=== PATIENT | male | born 1990 | race Caucasian/White ===

== ENCOUNTER 2017-08-17 21:50 | Emergency (ER) | payer SELFPAY ==
[2017-08-17 22:06] VITALS: BP 149/86; PULSE 88; TEMP 98.9; BMI 25.8
--- NOTE | 2017-08-17 23:57 | PDOC ---
History of Present Illness - General History Source: Patient Exam Limitations: No Limitations - History of Present Illness Initial Comments: 08/18/17 00:39 Patient is a 27 year old male with a significant past medical history of substance abuse who presents to the ED with complaints of lightheadedness that began earlier today. Patient reports smoking tre dust for tweeks straight followed by experiencing gradual lightheadedness that shows no signs of subsiding, prompting his family to bring him into the ED for further evaluation. He currently has no complaints while in the ED and states he would like to go home. Denies chest pain, Sob. Denies nausea, vomiting. Denies fevers, chills. Denies contact with sick individuals, out of state travelling. Denies any other symptoms. Allergies: None Social History: Current smoker. Current alcohol use. Current illicit drug use. Surgical History: None PMD: None <Kip Hillman - Last Filed: 08/18/17 00:57> - General History Source: Patient <Eleno Cross - Last Filed: 08/18/17 01:14> - General Chief Complaint: Substance Abuse Stated Complaint: SUBSTANCE ABUSE Time Seen by Provider: 08/17/17 23:53 Past History <Kip Hillman - Last Filed: 08/18/17 00:57> - Past Medical History COPD: No - Suicide/Smoking/Psychosocial Hx Smoking History: Never smoked Number of Cigarettes Smoked Daily: 10 Information on smoking cessation initiated: No Hx Alcohol Use: Yes Drug/Substance Use Hx: Yes Substance Use Type: Alcohol <Eleno Cross - Last Filed: 08/18/17 01:14> - Past Medical History Allergies/Adverse Reactions: Allergies Allergy/AdvReac Type Severity Reaction Status Date / Time No Known Allergies Allergy Verified 08/17/17 22:04 Home Medications: Ambulatory Orders NK [No Known Home Medication] 04/07/16 Review of Systems - Review of Systems Able to Perform ROS?: Yes Comments:: 08/18/17 00:39 CONSTITUTIONAL: +Lightheadedness. Absent: fever, no chills, no fatigue EYES: Absent: visual changes ENT: Absent: ear pain, no sore throat CARDIOVASCULAR: Absent: chest pain, no palpitations RESPIRATORY: Absent: cough, no SOB GI: Absent: abdominal pain, no nausea, no vomiting, no constipation, no diarrhea GENITOURINARY: Absent: dysuria, no frequency, no hematuria MUSCULOSKELETAL: Absent: back pain, no arthralgia, no myalgia SKIN: Absent: rash <Kip Hillman - Last Filed: 08/18/17 00:57> *Physical Exam - Vital Signs Last Vital Signs Temp Pulse Resp BP Pulse Ox 98.9 F 88 18 149/86 96 08/17/17 22:04 08/17/17 22:04 08/17/17 22:04 08/17/17 22:04 08/17/17 22:04 - Physical Exam Comments: 08/18/17 00:39 GENERAL: Well-appearing, well-nourished. No apparent distress. HEENT: Normocephalic, atraumatic. PERRL, EOM intact. CARDIOVASCULAR: Normal S1, S2. Regular rate and rhythm. PULMONARY: Clear to auscultation bilaterally. ABDOMEN: Soft, non-distended, non-tender. EXTREMITIES: Normal ROM in all four extremities. No gross deformities. SKIN: Warm, dry. No rash NEUROLOGICAL: No focal neurological deficits. <Kip Hillman - Last Filed: 08/18/17 00:57> - Vital Signs Last Vital Signs Temp Pulse Resp BP Pulse Ox 98.9 F 88 18 149/86 96 08/17/17 22:04 08/17/17 22:04 08/17/17 22:04 08/17/17 22:04 08/17/17 22:04 <Eleno Cross - Last Filed: 08/18/17 01:14> Heart Score/ECG Review - ECG Intrepretation Comment:: 08/18/17 00:57 Normal Sinus rhythm with sinus arrhythmia Normal ECG Vent. rate 71 bpm [place] interval 152 ms QRS duration 86 ms <Kip Hillman - Last Filed: 08/18/17 00:57> ED Treatment Course - LABORATORY CBC & Chemistry Diagram: 08/18/17 00:00 08/18/17 00:00 - ADDITIONAL ORDERS Additional order review: 08/18/17 00:00 RBC 5.34 MCV 89.4 MCHC 33.9 RDW 14.4 MPV 8.9 Neutrophils % 55.5 Lymphocytes % 35.3 Monocytes % 7.3 Eosinophils % 1.6 Basophils % 0.3 <Kip Hillman - Last Filed: 08/18/17 00:57> - LABORATORY CBC & Chemistry Diagram: 08/18/17 00:00 08/18/17 00:00 <Eleno Cross - Last Filed: 08/18/17 01:14> Medical Decision Making - Medical Decision Making 08/18/17 01:11 Dr. Cross: The scribe's documentation has been prepared under my direction and personally reviewed by me in its entirery. I confirm that the note above accurately reflects all work, treatment, procedures, and medical decision making performed by me. labs and EKG are stable. Patient will be discharged to follow with his primary care doctor <Eleno Cross - Last Filed: 08/18/17 01:14> *DC/Admit/Observation/Transfer - Attestations Scribe Attestion: 08/18/17 00:39 Documentation prepared by Kip Hillman, acting as bilingual medical assistant for Eleno Cross MD/DO. <Kip Hillman - Last Filed: 08/18/17 00:57> - Discharge Dispostion Admit: No <Eleno Cross - Last Filed: 08/18/17 01:14> Diagnosis at time of Disposition: Substance abuse - Discharge Dispostion Disposition: HOME Condition at time of disposition: Stable - Referrals Referrals: Jose Miguel Vincent MD [Staff Physician] - Vic Beaulieu MD [House Staff] - - Patient Instructions Printed Discharge Instructions: Getting Treatment for Drug Addiction
[2017-08-18 00:25] LABS: BASO % 0.3 % (0-2.0); EOS % 1.6 % (0-4.5); HEMATOCRIT 47.8 % (35.4-49); HEMOGLOBIN 16.2 GM/dL (11.7-16.9); LYMPH % 35.3 % (8-40); MCH 30.3 pg (25.7-33.7); MCHC 33.9 g/dl (32.0-35.9); MEAN CELL VOLUME 89.4 fl (80-96); MEAN PLT VOLUME 8.9 fl (7.5-11.1); MONO % 7.3 % (3.8-10.2); NEUT % 55.5 % (42.8-82.8); PLATELET COUNT 267 K/MM3 (134-434); RBC 5.34 M/mm3 (4.00-5.60); RDW 14.4 % (11.9-15.9); WHITE BLOOD COUNT 9.6 K/mm3 (4.0-10.0)
[2017-08-18 00:48] LABS: ALBUMIN 4.3 g/dl (3.4-5.0); ANION GAP 8 (8-16); BILIRUBIN,TOTAL 0.4 mg/dL (0.2-1.0); BLOOD UREA NITROGEN 9 mg/dL (7-18); CALCIUM 8.9 mg/dL (8.5-10.1); CHLORIDE 102 mmol/L (98-107); CO2 32 mmol/L (21-32); GLUCOSE,RANDOM 91 mg/dL (74-106); MAGNESIUM 2.5 mg/dL (1.8-2.4); POTASSIUM 4.7 mmol/L (3.5-5.1); SGOT/AST 15 U/L (15-37); SGPT/ALT 19 U/L (12-78); SODIUM 142 mmol/L (136-145)
[2017-08-18 00:51] LABS: ALK PHOS 82 U/L (45-117); N-TERMINAL BNP 10.83 pg/ml (5-125)
--- NOTE | 2017-08-21 11:42 | EKG ---
Test Reason : Blood Pressure : / mmHG Vent. Rate : 071 BPM Atrial Rate : 071 BPM P-R Int : 152 ms QRS Dur : 086 ms QT Int : 378 ms P-R-T Axes : 058 052 040 degrees QTc Int : 410 ms NORMAL SINUS RHYTHM WITH SINUS ARRHYTHMIA NORMAL ECG NO PREVIOUS ECGS AVAILABLE Confirmed by KAYLYN STOUT MD ([id number]) on 08/21/2017 11:42:27 AM Referred By: Confirmed By:KAYLYN STOUT MD
== END 2017-08-18 01:15 | disposition home or self-care (01) ==
LOC: JER 21:50
DX: F10.10 Alcohol abuse, uncomplicated (principal); F17.210 Nicotine dependence, cigarettes, uncomplicated
CPT/HCPCS: 36415; 80053; 82550; 83690; 83735; 83880; 84484; 85025; 93005; 93010; 99283-25

== ENCOUNTER 2017-08-18 09:19 | Inpatient (IN) | payer OTHER ==
[2017-08-18 09:56] VITALS: BMI 28.4
--- NOTE | 2017-08-18 12:47 | HP ---
CIWA Score - CIWA Score Nausea/Vomitin-No Nausea/No Vomiting Muscle Tremors: 1-None Visible, but Barto Anxiety: 5 Agitation: 3 Paroxysmal Sweats: No Perspiration Orientation: 3-Disoriented Date>2 days Tacttile Disturbances: 0-None Auditory Disturbances: 0-None Visual Disturbances: 0-None Headache: 0-None Present CIWA-Ar Total Score: 12 Admission ROS BHS - HPI Chief Complaint: ALCOHOL WITHDRAWAL SX Allergies/Adverse Reactions: Allergies Allergy/AdvReac Type Severity Reaction Status Date / Time No Known Allergies Allergy Verified 08/18/17 09:28 History of Present Illness: 27 Y/O H/MALE WITH A HX ALCOHOL DEPENDENCE SEEKING TREATMENT. PT WAS AT [facility] ER " BECAUSE I WAS BUGGING OUT,LOOSING MY MIND". "FAMILY MEMBERS TOOK ME TO THE ER". PT REPORTS PREVIOUS OUTPATIENT DRUG TREATMENT AT [facility] IN 2013. PT IS VERY RESTLESS, AND PACING AROUND THE ROOM ON ASSESSMENT. Exam Limitations: No Limitations - Ebola screening Have you traveled outside of the country in the last 21 days: No Have you had contact with anyone from an Ebola affected area: No Have you been sick,other than usual withdrawal symptoms: No Do you have a fever: No - Review of Systems Constitutional: Changes in sleep EENT: reports: Blurred Vision, Dental Problems (IN POOR REPAIR), Other (DRY EYES ) Respiratory: reports: No Symptoms reported Cardiac: reports: Lightheadedness GI: reports: No Symptoms Reported : reports: No Symptoms Reported Musculoskeletal: reports: Back Pain (RECENT RIGHT SIDE OF BACK STABBING PAIN "STRAIGHT UP".), Joint Pain (RIGHT INDEX FINGER PAIN SINCE YESTERDAY.) Integumentary: reports: No Symptoms Reported Neuro: reports: Headache, Numbness, Tingling, Unsteady Gait, Dizziness Endocrine: reports: No Symptoms Reported Hematology: reports: No Symptoms Reported Psychiatric: reports: Orientated x3 Other Systems: Reviewed and Negative Patient History - Patient Medical History Hx Anemia: No Hx Asthma: No Hx Chronic Obstructive Pulmonary Disease (COPD): No Hx Cardiac Disorders: No Hx Hypertension: No (BP 152/76) Hx Hypercholesterolemia: No HX Cerebrovascular Accident: No Hx Seizures: No Hx Diabetes: No Hx Gastrointestinal Disorders: No Hx Genitourinary Disorders: No Hx Sexually Transmitted Disorders: Yes (STD IN 2017 AND GOT A ONE TIME SHOT.) Hx Renal Disease (ESRD): No Hx Thyroid Disease: No Hx Human Immunodeficiency Virus (HIV): No (NEGATIVE HX) Hx Hepatitis C: No (NEGATIVE HX) Hx Depression: No Hx Suicide Attempt: No (DENIES S/H/I/TODAY) Hx Bipolar Disorder: No Hx Schizophrenia: No - Patient Surgical History Past Surgical History: No Hx Neurologic Surgery: No Hx Cataract Extraction: No Hx Cardiac Surgery: No Hx Lung Surgery: No Hx Breast Surgery: No Hx Breast Biopsy: No Hx Abdominal Surgery: No Hx Appendectomy: No Hx Cholecystectomy: No Hx Genitourinary Surgery: No Hx Section: No Hx Orthopedic Surgery: No Anesthesia Reaction: No - PPD History Previous Implant?: Yes Documented Results: Negative w/o proof Implanted On Prior [facility] Admission?: No - Reproductive History Patient is a Female of Child Bearing Age (11 -55 yrs old): No (MALE) - Smoking Cessation Smoking history: Current every day smoker Aproximately how many cigarettes per day: 10 Hx Chewing Tobacco Use: No Initiated information on smoking cessation: Yes 'Breaking Loose' booklet given: 08/18/17 - Substance & Tx. History Hx Alcohol Use: Yes (TEQUILA) Hx Substance Use: Yes (PCP) Substance Use Type: Alcohol ( AND PCP) Hx Substance Use Treatment: Yes (LAST TX AT [facility]) - Substances Abused PCP Route: Smoking Frequency: Daily Amount used: $30 Age of first use: 17 Date of Last Use: 08/17/17 Alcohol-tequila Route: Oral Frequency: 3-6 times per week Amount used: 3 pts. Age of first use: 14 Date of Last Use: 08/17/17 Family Disease History - Family Disease History Family Disease History: Diabetes: Mother (ALIVE) Admission Physical Exam BHS - Vital Signs Vital Signs: Vital Signs - 24 hr 08/18/17 09:47 Temperature 96.3 F L Pulse Rate 65 Respiratory 20 Rate Blood Pressure 152/76 - Physical General Appearance: Yes: Moderate Distress, Irritable, Anxious, Other (VERY RESTLESS AND PACING IN ROOM.) HEENTM: Yes: EOMI, Normocephalic, WU, Pharynx Normal Respiratory: Yes: Chest Non-Tender, Lungs Clear, Normal Breath Sounds, No Respiratory Distress Neck: Yes: Supple, Trachea in good position Breast: Yes: Breast Exam Deferred Cardiology: Yes: Regular Rhythm, Regular Rate, S1, S2 Abdominal: Yes: Normal Bowel Sounds, Non Tender, Flat, Soft Genitourinary: Yes: Other (N/C) Back: Yes: Within Normal Limits Musculoskeletal: Yes: full range of Motion, Gait Steady Extremities: Yes: Normal Range of Motion, Non-Tender Neurological: Yes: hide dyer II-XII NML intact, Fully Oriented, Alert, Motor Strength 5/5 Integumentary: Yes: Dry, Warm, Other (SMALL RECENT SUPERFICIAL BRUISE ON RIGHT KNEE.) Lymphatic: Yes: Within Normal Limits - Diagnostic (1) Alcohol dependence with uncomplicated withdrawal Current Visit: Yes Status: Acute (2) Atypical mole Current Visit: Yes Status: Acute Comment: QUARTER INCH BROWN MOLE ON LEFT LATERAL SIDE OF BACK. Cleared for Admission [facility] - Detox or Rehab [facility] Level of Care: Medically Managed Detox Regimen/Protocol: Librium [facility] Breath Alcohol Content Breath Alcohol Content: 0 Urine Drug Screen - Results Drug Screen Negative: No Urine Drug Screen Results: THC-Marijuana, PCP-Phencyclidine
[2017-08-18] MEDS ORDERED: MAG HYDROX/AL HYDROX/SIMETH 30 ML UNIT-DOSE CUP PO PRN (13:11)
[2017-08-18] MEDS ORDERED: MAGNESIUM HYDROX 2400MG/30ML ORAL SUSPENSION 30 ML CUP PO PRN (13:11)
[2017-08-18] MEDS ORDERED: ACETAMINOPHEN 325 MG TABLET (FP) PO PRN (13:11)
[2017-08-18] MEDS ORDERED: LOPERAMIDE HCL 2 MG CAPSULE PO PRN (13:11)
[2017-08-18] MEDS ORDERED: P-EPHED 60MG/TRIPROLIDI 2.5MG TABLET PO PRN (13:11)
[2017-08-18] MEDS ORDERED: guaiFENesin/D-METHORPHAN HB 10 ML UNIT-DOSE CUPS PO PRN (13:11)
[2017-08-18] MEDS ORDERED: chlordiazePOXIDE HCL 25 MG CAPSULE PO PRN (13:11)
[2017-08-18] MEDS ORDERED: IBUPROFEN 400 MG TABLET (FP) PO PRN (13:11)
[2017-08-18] MEDS ORDERED: MENTHOL/PHENOL 1 EACH UD MM PRN (13:11)
[2017-08-18] MEDS ORDERED: MAGNESIUM CITRATE 300 ML BOTTLE PO PRN (13:11)
[2017-08-18] MEDS ORDERED: NICOTINE POLACRILEX 2 MG GUM BUC PRN (13:16)
[2017-08-18] MEDS ORDERED: hydrOXYzine PAMOATE 50 MG CAPSULE (FP) PO PRN (13:17)
[2017-08-18] MEDS ORDERED: NICOTINE 14 MG/24 HOURS TOPICAL PATCH TD SCH (13:55)
--- NOTE | 2017-08-18 16:51 | CONSULT ---
[facility] Psychiatric Consult - Data Date of interview: 08/18/17 Admission source: [facility] Identifying data: First admission to [facility] for this 27 y/o [place]-born male ,brought by his relatives for detox treatment for phencyclidine and marihuana dependence.Patient is single,a father of one,domiciled,unemployed and currently supported by family members. Substance Abuse History: Discussed in this session.Mr Branham admits to heavy use of PCP and marihuana.See details in the following section,extracted from the current [facility] report : Smoking history: Current every day smoker. Aproximately how many cigarettes per day: 10. Hx Chewing Tobacco Use: No. Initiated information on smoking cessation: Yes. 'Breaking Loose' booklet given : 08/18/17. - Substance & Tx. History. Hx Alcohol Use: Yes (TEQUILA). Hx Substance Use: Yes (PCP). Substance Use Type: Alcohol ( AND PCP). Hx Substance Use Treatment: Yes (LAST TX AT [facility]). - Substances Abused. PCP. Route: Smoking. Frequency: Daily. Amount used: $30. Age of first use: 17. Date of Last Use: 08/17/17. Alcohol-tequila. Route: Oral. Frequency: 3-6 times per week. Amount used: 3 pts. Age of first use: 14. Date of Last Use: 08/17/17 Medical History: Patient endorses good general health. Psychiatric History: Patient denies history of psychiatric hospitalizations.Mr Branham used to attend [facility] program at [facility] (court-mandated in 2013).He denies history of suicide attempts. Physical/Sexual Abuse/Trauma History: Patient denies. Additional Comment: Urine Drug Screen Results: THC-Marijuana, PCP- Phencyclidine.Noted. Mental Status Exam - Mental Status Exam Alert and Oriented to: Time, Place, Person Cognitive Function: Good Patient Appearance: Well Groomed (short,muscular built,covered with tattoos on forearms) Mood: Angry, Nervous, Irritable (upset at his relatives for bringing him to this facility) Affect: Mood Congruent Patient Behavior: Guarded (unpredictable,in total denial of the seriousness of suicidal threats made at [facility] earlier), Impulsive Speech Pattern: Clear Voice Loudness: Normal Thought Process: Goal Oriented Thought Disorder: Bizarre Hallucinations: Denies Suicidal Ideation: Denies (now ), Past (earlier during his assessment at [facility], this patient has been heard saying that he has plans to wrap a rope around his neck and hang) Homicidal Ideation: Denies Insight/Judgement: Poor Sleep: Fair Appetite: Good Muscle strength/Tone: Normal Gait/Station: Normal Psychiatric Findings - Problem List ([place] 1, 2,3) (1) Alcohol dependence with uncomplicated withdrawal Status: Acute (2) Phencyclidine (PCP) use disorder, severe, dependence Status: Acute (3) Marihuana dependence Status: Acute (4) Substance induced mood disorder Status: Acute (5) Impulse control disorder, unspecified Status: Acute - Initial Treatment Plan Initial Treatment Plan: Psychoeducation attempted : patient is NOT receptive.Mr Branham remains unpredictable.Refused treatment.Wants to leave immediately ( against medical advice).I have established contact,via telephone with his relatives.Spoke to his mother Haja Lau,his sister Kandy ) and his nephew Florencio Branham (tongan-speaking) at the request of the patient.They confirmed patient's statement made at [facility].Decision is made to place this patient on 1:1 Constant Observation as a precaution against elopement /impulsive behaviors.Case discussed with nursing staff.If escalation,EMS/911 will be activated and the patient will be transferred to the psychiatric emergency room at [facility] for further evaluation and disposition.Discussed with the nurse's school crossing guard supervisor on duty.
[2017-08-18] MEDS ORDERED: chlordiazePOXIDE HCL 25 MG CAPSULE PO SCH (17:00)
[2017-08-18 18:33] VITALS: BP 129/72; PULSE 73; TEMP 97.9
--- NOTE | 2017-08-18 19:33 | PN ---
[facility] Progress Note Note: Patient currently on 1:1 watch. Patient reported past (earlier during his assessment at [facility],this patient has been heard saying that he has plans to wrap a rope around his neck and hang). While in the unit patient was very anxious, pacing and agitated. Patient repeated several times that he wanted to leave, patient walked off the unit and was followed by the staff and security. Ambulance was called and patient was sent to [place] for further evaluation.
[2017-08-18] MEDS ORDERED: MELATONIN 5 MG TABLETS PO PRN (22:00)
[2017-08-18] MEDS ORDERED: THIAMINE HCL 100 MG TABLET (FP) PO SCH (22:00)
[2017-08-19] MEDS ORDERED: PRENATAL VITAMINS W/ FOLIC ACID TABLET (FP) PO SCH (10:00)
[2017-08-19] MEDS ORDERED: chlordiazePOXIDE HCL 25 MG CAPSULE PO SCH (17:00)
--- NOTE | 2017-08-19 18:33 | EKG ---
Test Reason : Blood Pressure : / mmHG Vent. Rate : 065 BPM Atrial Rate : 065 BPM P-R Int : 150 ms QRS Dur : 086 ms QT Int : 386 ms P-R-T Axes : 042 054 036 degrees QTc Int : 401 ms NORMAL SINUS RHYTHM NORMAL ECG WHEN COMPARED WITH ECG OF 18-AUG-2017 00:33, NO SIGNIFICANT CHANGE WAS FOUND Confirmed by MD ARAIZA MOYSES ([id number]) on 08/19/2017 6:32:56 PM Referred By: Confirmed By:JOREG ARAIZA MD
[2017-08-20] MEDS ORDERED: chlordiazePOXIDE 5 MG CAPSULE PO SCH (17:00)
[2017-08-21] MEDS ORDERED: chlordiazePOXIDE HCL 10 MG CAPSULE PO SCH (17:00)
== END 2017-08-18 19:13 | disposition short-term general hospital (02) | DRG 775 ==
LOC: YASAS 09:19 → Y3N 13:49
PROVIDERS: ADMIT Internal Medicine; ATTEND Internal Medicine
PROC: HZ2ZZZZ Detoxification Services for Substance Abuse Treatment (ICD-10-PCS; principal; 2017-08-18)
DX: F10.230 Alcohol dependence with withdrawal, uncomplicated (principal); F12.20 Cannabis dependence, uncomplicated; F16.20 Hallucinogen dependence, uncomplicated; F19.24 Other psychoactive substance dependence with psychoactive substance-induced mood disorder; F63.9 Impulse disorder, unspecified; D22.9 Melanocytic nevi, unspecified; Z86.19 Personal history of other infectious and parasitic diseases
CPT/HCPCS: 36415; 86593; 93005; 93010

== ENCOUNTER 2017-12-22 20:35 | Emergency (ER) | payer SELFPAY ==
--- NOTE | 2017-12-22 20:40 | PDOC ---
Rapid Medical Evaluation Time Seen by Provider: 12/22/17 20:39 Medical Evaluation: Allergies Allergy/AdvReac Type Severity Reaction Status Date / Time No Known Allergies Allergy Verified 12/22/17 20:37 12/22/17 20:39 The patient presents with a chief complaint of: elbow injury I have performed a brief in-person evaluation of this patient. Pertinent physical exam findings: vss, I have ordered the following: xray, pain meds The patient will proceed to the ED for further evaluation.
[2017-12-22] MEDS ORDERED: morphine CARPU-JECT 4 MG/1 ML DISP.SYRIN IVPUSH ONE (20:42)
[2017-12-22 20:43] VITALS: BP 140/69; PULSE 89; TEMP 99.2; BMI 29.0
[2017-12-22] MEDS ORDERED: morphine SULFATE 4 MG/ML VIAL ONE (21:02)
[2017-12-22 21:08] LABS: BASO % 0.6 % (0-2.0); EOS % 1.6 % (0-4.5); HEMATOCRIT 40.8 % (35.4-49); HEMOGLOBIN 14.1 GM/dL (11.7-16.9); LYMPH % 27.8 % (8-40); MCH 30.9 pg (25.7-33.7); MCHC 34.5 g/dl (32.0-35.9); MEAN CELL VOLUME 89.5 fl (80-96); MEAN PLT VOLUME 8.5 fl (7.5-11.1); MONO % 7.8 % (3.8-10.2); NEUT % 62.2 % (42.8-82.8); PLATELET COUNT 215 K/MM3 (134-434); RBC 4.55 M/mm3 (4.00-5.60); RDW 14.1 % (11.9-15.9); WHITE BLOOD COUNT 8.5 K/mm3 (4.0-10.0)
[2017-12-22 21:21] LABS: INR 0.96 (0.83-1.09); PROTHROMBIN TIME (PATIENT) 10.9 SEC (9.7-13.0)
[2017-12-22 21:24] LABS: ACTIVATED PTT 32.3 SECONDS (25.2-36.5)
--- NOTE | 2017-12-22 21:35 | PDOC ---
History of Present Illness - General Chief Complaint: Pain, Acute Stated Complaint: ARM INJURY Time Seen by Provider: 12/22/17 20:39 History Source: Patient Exam Limitations: No Limitations - History of Present Illness Initial Comments: 12/22/17 21:27 HISTORY OF PRESENT ILLNESS: 27-year-old male denies medical history presents emergency Department with left elbow pain status post fall today. Patient states was working on a scaffolding approximately 5 feet above the ground when one of the boards under his foot gave way. Patient states she landed on the ground causing his left elbow to hyperextend. Patient was seen and evaluated at [facility] immediately after the injury but has had continued pain since that time. No recent travel or sick contacts. PAST MEDICAL HISTORY: Denies past medical history SURGICAL HISTORY: Denies ALLERGIES: No known drug allergies REVIEW OF SYSTEMS General/Constitutional: Denies fever or chills. Denies weakness, weight change. HEENT: Denies change in vision. Denies ear pain or discharge. Denies sore throat. Cardiovascular: Denies chest pain or shortness of breath. Respiratory: Denies cough, wheezing, or hemoptysis. Gastrointestinal: Denies nausea, vomiting, diarrhea or constipation. Denies rectal bleeding. Genitourinary: Denies dysuria, frequency, or change in urination. Musculoskeletal: Denies joint or muscle swelling or pain. Denies neck or back pain. Skin and breasts: Denies rash or easy bruising. Neurologic: Denies headache, vertigo, loss of consciousness, or loss of sensation. Psychiatric: Denies depression or anxiety. Endocrine: Denies increased thirst. Denies abnormal weight change. Hematologic/Lymphatic: Denies anemia, easy bleeding, or history of blood clots. Allergic/Immunologic: Denies hives or skin allergy. Denies latex allergy. PHYSICAL EXAM General Appearance: Well-appearing, appropriately dressed. No apparent distress , no intoxication. HEENT: EOMI, PERRLA, normal ENT inspection, normal voice, TMs normal, pharynx normal. No conjunctival pallor. No photophobia, scleral icterus. Neck: Supple. Trachea midline. No tenderness, rigidity, carotid bruit, stridor , lymphadenopathy, or thyromegaly. Respiratory/Chest: Lungs CTAB. No shortness of breath, chest tenderness, respiratory distress, accessory muscle use. No crackles, rales, rhonchi, stridor , wheezing, dullness Cardiovascular: RRR. S1, S2. No JVD, murmur, bradycardia, tachycardia. Vascular Pulses: Dorsalis-Pedis (R): 2+, Dorsalis-Pedis (L): 2+, L radial and ulnar pulses 2+ Gastrointestinal/Abdominal: Normal bowel sounds. Abdomen soft, non-distended. No tenderness or rebound tenderness. No organomegaly, pulsatile mass, guarding , hernia, hepatomegaly, splenomegaly. Lymphatic: No adenopathy, tenderness. Musculoskeletal/Extremities: Circumferential swelling present to left forearm. Decreased extension of left elbow 2/2 pain. Normal capillary refill. Pelvis Stable. No CVA tenderness. Tenderness to left lateral elbow. No pedal edema, swelling, erythema or deformity. Integumentary: Appropriate color, dry, warm. No cyanosis, erythema, jaundice or rash Neurologic: chief lock operator II-XII intact. Fully oriented, alert. Appropriate mood/affect. Motor strength 5/5. No appreciable EOM palsy, facial droop or sensory deficit. Past History - Past Medical History Allergies/Adverse Reactions: Allergies Allergy/AdvReac Type Severity Reaction Status Date / Time No Known Allergies Allergy Verified 12/22/17 20:37 Home Medications: Ambulatory Orders Folic Acid 1 mg PO DAILY #30 tablet 08/22/17 Multivitamin [One Daily] 1 each PO DAILY #30 tablet 08/22/17 Anemia: No Asthma: No Cardiac Disorders: No CVA: No COPD: No Diabetes: No GI Disorders: No Disorders: No HTN: No (BP 152/76) Hypercholesterolemia: No Kidney Stones: No Seizures: No Thyroid Disease: No - Surgical History Abdominal Surgery: No Appendectomy: No Cardiac Surgery: No Cholecystectomy: No Lung Surgery: No Neurologic Surgery: No Orthopedic Surgery: No - Reproductive History Testicular Surgery: No - Immunization History Immunization Up to Date: No - Suicide/Smoking/Psychosocial Hx Smoking History: Never smoked Have you smoked in the past 12 months: No Number of Cigarettes Smoked Daily: 10 Information on smoking cessation initiated: No 'Breaking Loose' booklet given: 08/18/17 Hx Alcohol Use: No Drug/Substance Use Hx: No Substance Use Type: None Hx Substance Use Treatment: Yes ([facility] inpatient detox and [facility] recently) *Physical Exam - Vital Signs Last Vital Signs Temp Pulse Resp BP Pulse Ox 99.2 F 89 20 140/69 100 12/22/17 20:37 12/22/17 20:37 12/22/17 20:37 12/22/17 20:37 12/22/17 20:37 ED Treatment Course - LABORATORY CBC & Chemistry Diagram: 12/22/17 20:54 12/22/17 20:54 - ADDITIONAL ORDERS Additional order review: 12/22/17 20:54 RBC 4.55 MCV 89.5 MCHC 34.5 RDW 14.1 MPV 8.5 Neutrophils % 62.2 Lymphocytes % 27.8 D Monocytes % 7.8 Eosinophils % 1.6 D Basophils % 0.6 - Medications Given in the ED: ED Medications Discontinued Medications Generic Name Dose Route Start Last Admin Trade Name Ramsey PRN Reason Stop Dose Admin Morphine Sulfate 4 mg 12/22/17 20:42 12/22/17 21:10 Morphine Injection - IVPUSH 12/22/17 20:43 4 mg ONCE ONE Administration Oxycodone/Acetaminophen 2 combo 12/22/17 20:40 12/22/17 21:04 Percocet 5/325 - PO 12/22/17 20:41 Not Given ONCE ONE Medical Decision Making - Medical Decision Making 12/22/17 21:29 A/P: 27-year-old male with left elbow pain status post fall from scaffolding Circumferential swelling present distal to elbow Passive range of motion for pronation supination performed without difficulty Passive flexion of left elbow without difficulty Increased pain with extension of left elbow 2+ radial and ulnar pulses Capillary refill less than 2 seconds Sales Facilitator strength 5/5 bilaterally X-rays, labs, reassess DDx: fx, tendon rupture, compartment syndrome Compartment syndrome was likely given patient has normal Liver him a pulses 2 radial and ulnar arteries and normal neurovascular status. 12/22/17 22:35 X-rays as read by me: No acute fractures noted. Soft tissue swelling noted over distal portion of radius and ulna which does not extend above the elbow. Laboratory testing is unremarkable. I will discharge the patient home with sling and instructions to apply ice to area. I will give patient orthopedic follow-up and strict discharge instructions regarding compartment syndrome. *DC/Admit/Observation/Transfer Diagnosis at time of Disposition: Elbow pain, left - Discharge Dispostion Disposition: HOME Condition at time of disposition: Fair Decision to Admit order: No - Referrals Referrals: Tanner Guallpa MD [Staff Physician] - - Patient Instructions Additional Instructions: Use sling 24 hours a day except while in shower Apply ice for 20 minutes at a time. Remove ice for a minimum of 20 minutes before reapplying. You have been given a referral for an orthopedist. Call Monday to make an appointment for reevaluation. Return to emergency department for discoloration of her hand, numbness or tingling of your fingers, inability to move your fingers, severe pain, worsening pressure in your elbow or forearm or any other concerns. Thank you very much for trismus to provide emergent health care needs. - Post Discharge Activity Forms/Work/School Notes: Back to Work
[2017-12-22 21:40] LABS: ANION GAP 7 (8-16); BILIRUBIN,TOTAL 0.4 mg/dL (0.2-1.0); BLOOD UREA NITROGEN 14 mg/dL (7-18); CALCIUM 8.5 mg/dL (8.5-10.1); CHLORIDE 109 mmol/L (98-107); CO2 28 mmol/L (21-32); GLUCOSE,RANDOM 93 mg/dL (74-106); POTASSIUM 3.7 mmol/L (3.5-5.1); SGOT/AST 37 U/L (15-37); SGPT/ALT 28 U/L (12-78); SODIUM 144 mmol/L (136-145); TOT PROT 7.1 g/dl (6.4-8.2)
[2017-12-22 21:41] LABS: ALK PHOS 89 U/L (45-117)
== END 2017-12-22 22:55 | disposition home or self-care (01) ==
LOC: JER 20:35
PROC: 3E033NZ Introduction of Analgesics, Hypnotics, Sedatives into Peripheral Vein, Percutaneous Approach (ICD-10-PCS; principal; 2017-12-22)
DX: M25.522 Pain in left elbow (principal); W18.39XA Other fall on same level, initial encounter; Y93.89 Activity, other specified; Y92.89 Other specified places as the place of occurrence of the external cause
CPT/HCPCS: 36415; 73070-TC-LT-FY; 80053; 85025; 85610; 85730; 99284-25

== ENCOUNTER 2018-02-15 11:44 | Emergency (ER) | payer OTHER ==
[2018-02-15 11:49] VITALS: BP 116/45; PULSE 65; TEMP 98.3; BMI 29.8
[2018-02-15] MEDS ORDERED: RANITIDINE HCL 150 MG TABLET (FP) PO ONE (11:58)
[2018-02-15] MEDS ORDERED: MAG HYDROX/AL HYDROX/SIMETH -MYLANTA- ORAL SUSPENSION PO ONE (11:58)
--- NOTE | 2018-02-15 12:05 | PDOC ---
History of Present Illness - General Chief Complaint: Pain Stated Complaint: CHEST PAIN Time Seen by Provider: 02/15/18 11:50 History Source: Patient Exam Limitations: No Limitations - History of Present Illness Initial Comments: 02/15/18 12:02 27 yr male states he drank a red bull this am and experienced epigastric discomfort . neg nausea or vomiting neg palpitations. no PMHX smoked marijuana yesterday. Past History - Past Medical History Allergies/Adverse Reactions: Allergies Allergy/AdvReac Type Severity Reaction Status Date / Time No Known Allergies Allergy Verified 02/15/18 11:45 Home Medications: Ambulatory Orders NK [No Known Home Medication] 02/15/18 Anemia: No Asthma: No Cardiac Disorders: No CVA: No COPD: No DVT: No Diabetes: No GI Disorders: No Disorders: No HTN: No Hypercholesterolemia: No Kidney Stones: No Seizures: No Thyroid Disease: No - Surgical History Abdominal Surgery: No Appendectomy: No Cardiac Surgery: No Cholecystectomy: No Lung Surgery: No Neurologic Surgery: No Orthopedic Surgery: No - Reproductive History Testicular Surgery: No - Immunization History Immunization Up to Date: No - Suicide/Smoking/Psychosocial Hx Smoking History: Never smoked Have you smoked in the past 12 months: No Number of Cigarettes Smoked Daily: 5 Information on smoking cessation initiated: Yes 'Breaking Loose' booklet given: 02/15/18 Hx Alcohol Use: No Drug/Substance Use Hx: No (PUMA) Substance Use Type: None Hx Substance Use Treatment: Yes ([facility] inpatient detox and [facility] recently) Abd/GI Specific PMHX - Complaint Specific PMHX Hepatitis: No Pancreatitis: No Review of Systems - Review of Systems Able to Perform ROS?: Yes Is the patient limited [place] proficient: No Constitutional: No: Symptoms Reported HEENTM: No: Symptoms Reported Respiratory: No: Symptoms reported Cardiac (ROS): Yes: Symptoms Reported ABD/GI: Yes: Symptoms Reported *Physical Exam - Vital Signs Last Vital Signs Temp Pulse Resp BP Pulse Ox 98.3 F 65 18 116/45 L 100 02/15/18 11:47 02/15/18 11:47 02/15/18 11:47 02/15/18 11:47 02/15/18 11:47 - Physical Exam General Appearance: Yes: Nourished, Appropriately Dressed HEENT: positive: EOMI, WU, Normal ENT Inspection, TMs Normal, Pharynx Normal Neck: positive: Supple. negative: Tender Respiratory/Chest: positive: Lungs Clear, Normal Breath Sounds. negative: Chest Tender Cardiovascular: positive: Regular Rhythm, Regular Rate Gastrointestinal/Abdominal: positive: Other (epigastric tenderness to deep palpation ) Medical Decision Making - Medical Decision Making 02/15/18 12:03 cc: epigastric pain after drinking red bull pain has improved, however still with "dullness" to the epigastric area neg abd pain neg chest pain EKG done in triage is NSR 60BPM no cough no back pain will give maalox and zantac 02/15/18 12:13 EKG NSR 60bpm *DC/Admit/Observation/Transfer Diagnosis at time of Disposition: Epigastric discomfort - Discharge Dispostion Disposition: HOME Condition at time of disposition: Improved - Referrals Referrals: Louis Griffin MD [Staff Physician] - - Patient Instructions Additional Instructions: Return if any worsening symptoms Do not drink any red bull or any energy drinks bland diet today avoid spicy or fatty foods you can get over the counter TUMS and pepcid to use follow with your doctor or for follow up - Post Discharge Activity
--- NOTE | 2018-02-15 14:30 | EKG ---
Test Reason : Blood Pressure : / mmHG Vent. Rate : 060 BPM Atrial Rate : 060 BPM P-R Int : 158 ms QRS Dur : 084 ms QT Int : 384 ms P-R-T Axes : 046 045 034 degrees QTc Int : 384 ms NORMAL SINUS RHYTHM NORMAL ECG WHEN COMPARED WITH ECG OF 20-AUG-2017 21:51, QT HAS SHORTENED Confirmed by LANG ALLEN MD ([id number]) on 02/15/2018 2:29:45 PM Referred By: Confirmed By:LANG ALLEN MD
== END 2018-02-15 12:34 | disposition home or self-care (01) ==
LOC: JERFT 11:44
DX: R10.13 Epigastric pain (principal)
CPT/HCPCS: 93005; 93010; 99281-25

== ENCOUNTER 2018-09-26 19:39 | Observation (INO) | payer OTHER ==
--- NOTE | 2018-09-26 19:46 | PDOC ---
Rapid Medical Evaluation Time Seen by Provider: 09/26/18 19:43 Medical Evaluation: Allergies Allergy/AdvReac Type Severity Reaction Status Date / Time No Known Allergies Allergy Verified 02/15/18 11:45 09/26/18 19:43 HPI: Punched pipe yesterday while shadow boxing stitches yesterday in the ER PE: R hand swelling and erythema about the ulna aspect of the hand ORDERS: Labs and PIV 09/26/18 19:45 Discharge Disposition - Diagnosis Cellulitis of hand - Referrals - Patient Instructions - Post Discharge Activity
[2018-09-26 19:48] VITALS: BP 139/91; PULSE 113; BMI 29.8
--- NOTE | 2018-09-26 21:12 | PDOC ---
*Physical Exam - Vital Signs Last Vital Signs Temp Pulse Resp BP Pulse Ox 99.3 F 113 H 18 139/91 97 09/26/18 19:45 09/26/18 19:45 09/26/18 19:45 09/26/18 19:45 09/26/18 19:45 ED Treatment Course - LABORATORY CBC & Chemistry Diagram: 09/26/18 21:05 09/26/18 21:05 Medical Decision Making - Medical Decision Making 09/26/18 21:12 Patient seen by the advanced practice provider under my direct supervision. Ancillary testing reviewed as necessary. I agree with plan as outlined by the advanced practice provider. *DC/Admit/Observation/Transfer Diagnosis at time of Disposition: Cellulitis of hand - Referrals - Patient Instructions - Post Discharge Activity
[2018-09-26] MEDS ORDERED: ACETAMINOPHEN 500 MG TABLET (FP) PO ONE (21:13)
[2018-09-26] MEDS ORDERED: SODIUM CHLORIDE 1,000 ML IV STA (21:13)
--- NOTE | 2018-09-26 21:24 | PDOC ---
History of Present Illness - General Chief Complaint: Redness To Affected Area Stated Complaint: RIGHT/HAND SWOLLEN Time Seen by Provider: 09/26/18 19:43 History Source: Patient Exam Limitations: No Limitations - History of Present Illness Initial Comments: 09/26/18 21:20 HISTORY OF PRESENT ILLNESS: 28-year-old male denies medical history presents emergency department for evaluation of right hand redness and swelling starting today. Patient reports yesterday he was shadow boxing and accidentally punched a metal pole in his house causing him to sustain a laceration between the fourth and fifth digits of his right hand. Patient went to another hospital and had sutures placed at that time when he woke up this morning had increased pain and noted some swelling to the dorsum of his right hand. Patient is right-hand dominant. Patient was concerned as he had pus draining from the suture line. No recent travel or sick contacts. PAST MEDICAL HISTORY: Denies past medical history SURGICAL HISTORY: Denies ALLERGIES: No known drug allergies REVIEW OF SYSTEMS General/Constitutional: Denies fever or chills. Denies weakness, weight change. HEENT: Denies change in vision. Denies ear pain or discharge. Denies sore throat. Cardiovascular: Denies chest pain or shortness of breath. Respiratory: Denies cough, wheezing, or hemoptysis. Gastrointestinal: Denies nausea, vomiting, diarrhea or constipation. Denies rectal bleeding. Genitourinary: Denies dysuria, frequency, or change in urination. Musculoskeletal: Denies joint or muscle swelling or pain. Denies neck or back pain. Skin and breasts: see HPI Neurologic: Denies headache, vertigo, loss of consciousness, or loss of sensation. Psychiatric: Denies depression or anxiety. Endocrine: Denies increased thirst. Denies abnormal weight change. Hematologic/Lymphatic: Denies anemia, easy bleeding, or history of blood clots. Allergic/Immunologic: Denies hives or skin allergy. Denies latex allergy. PHYSICAL EXAM General Appearance: Well-appearing, appropriately dressed. No apparent distress , no intoxication. Respiratory/Chest: Lungs CTAB. No shortness of breath, chest tenderness, respiratory distress, accessory muscle use. No crackles, rales, rhonchi, stridor , wheezing, dullness Cardiovascular: RRR. S1, S2. No JVD, murmur, bradycardia, tachycardia. Vascular Pulses: Radial (R): 2+, Radial (L): 2+ Musculoskeletal/Extremities: Swelling and erythema present to the dorsum of the right hand along the ulnar aspect. Erythema extends to the 2nd digit on the right hand. Tenderness over the area of erythema. Area is warm to touch. Able to express purulent drainage from suture line presents to the dorsum of the right hand between the fourth and fifth digits. Decreased range of motion with flexion of the fingers secondary to pain. Full extension present. Neurovascularly intact. Capillary refill less than 2 seconds. Integumentary: see MSK assessment Neurologic: fly tier II-XII intact. Fully oriented, alert. Appropriate mood/affect. Motor strength 5/5. No appreciable EOM palsy, facial droop or sensory deficit. 09/26/18 21:24 09/26/18 23:13 Past History - Past Medical History Allergies/Adverse Reactions: Allergies Allergy/AdvReac Type Severity Reaction Status Date / Time No Known Allergies Allergy Verified 09/26/18 19:45 Home Medications: Ambulatory Orders NK [No Known Home Medication] 02/15/18 Anemia: No Asthma: No Cardiac Disorders: No CVA: No COPD: No DVT: No Diabetes: No GI Disorders: No Disorders: No HTN: No Hypercholesterolemia: No Kidney Stones: No Seizures: No Thyroid Disease: No - Surgical History Abdominal Surgery: No Appendectomy: No Cardiac Surgery: No Cholecystectomy: No Lung Surgery: No Neurologic Surgery: No Orthopedic Surgery: No - Reproductive History Testicular Surgery: No - Immunization History Immunization Up to Date: No - Suicide/Smoking/Psychosocial Hx Smoking History: Current every day smoker Have you smoked in the past 12 months: No Number of Cigarettes Smoked Daily: 6 Information on smoking cessation initiated: No 'Breaking Loose' booklet given: 02/15/18 Hx Alcohol Use: No Drug/Substance Use Hx: No (PUMA) Substance Use Type: None Hx Substance Use Treatment: Yes ([facility] inpatient detox and [facility] recently) *Physical Exam - Vital Signs Last Vital Signs Temp Pulse Resp BP Pulse Ox 99.3 F 113 H 18 139/91 97 09/26/18 19:45 09/26/18 19:45 09/26/18 19:45 09/26/18 19:45 09/26/18 19:45 ED Treatment Course - LABORATORY CBC & Chemistry Diagram: 09/26/18 21:05 09/26/18 21:05 Medical Decision Making - Medical Decision Making 09/26/18 21:24 A/P: 28-year-old male with cellulitis from infected sutures of his right hand Basic labs Blood cultures Wound culture Tylenol Cefazolin 1 g IV Likely discharge 09/26/18 21:33 09/26/18 23:48 Patient with a WBC of 15,000. I will admit the patient for IV antibiotics. Case is been discussed with the hospitalist service who accepts patient for inpatient admission. *DC/Admit/Observation/Transfer Diagnosis at time of Disposition: Cellulitis of hand - Discharge Dispostion Condition at time of disposition: Fair Decision to Admit order: Yes - Referrals - Patient Instructions - Post Discharge Activity
[2018-09-26 21:26] LABS: BASO % 0.6 % (0-2.0); EOS % 1.9 % (0-4.5); HEMATOCRIT 43.7 % (35.4-49); HEMOGLOBIN 14.7 GM/dL (11.7-16.9); LYMPH % 17.6 % (8-40); MCH 30.8 pg (25.7-33.7); MCHC 33.5 g/dl (32.0-35.9); MEAN PLT VOLUME 8.5 fl (7.5-11.1); MONO % 6.4 % (3.8-10.2); NEUT % 73.5 % (42.8-82.8); PLATELET COUNT 245 K/MM3 (134-434); RBC 4.75 M/mm3 (4.00-5.60); RDW 14.1 % (11.9-15.9)
[2018-09-26] MEDS ORDERED: CEFAZOLIN 1 GM in DEXTROSE 5%-WATER - 50 ML IVPB ONE (21:29)
[2018-09-26] MEDS ORDERED: CEFAZOLIN 1 GM/D5W 1 GM/50 ML BAG ONE (21:47)
[2018-09-26 21:50] LABS: ALBUMIN 3.9 g/dl (3.4-5.0); BILIRUBIN,TOTAL 0.3 mg/dL (0.2-1); CALCIUM 9.1 mg/dL (8.5-10.1); CREATININE 0.9 mg/dL (0.55-1.3); TOT PROT 7.7 g/dl (6.4-8.2)
[2018-09-26] MEDS ORDERED: ACETAMINOPHEN 500 MG TABLET (FP) ONE (21:58)
[2018-09-26] MEDS ORDERED: SODIUM CHLORIDE 1,000 ML IV SCH (23:45)
[2018-09-27 00:17] VITALS: TEMP 98.6
--- NOTE | 2018-09-27 00:21 | HP ---
CHIEF COMPLAINT: hand pain HISTORY OF PRESENT ILLNESS: Patient is a 28 yo M with a PMHx of polysubstance abuse (PCP, marijuana), presented to the ED with R hand pain. He said yesterday he was shadow boxing at his house and hit a metal pole causing a laceration between the 4th and 5th digits of his R hand. He then went to a hospital in [facility] and they stitched it. Today he woke up with increasing pain, redness, and swelling. He says the pain was a 10/10, throbbing pain. Patient has no other symptoms. He denies fevers, chills, nausea, vomiting, sob, chest pain, dizziness, diarrhea, recent traveling, sick contacts. He admits to PCP use today. He denies IV drug use. ER course was notable for: (1) 113 HR, WBC 15 (2) Ancef Recent Travel: denies PAST MEDICAL HISTORY: per HPI Social History: Smoking: says he started today after quitting 1 month ago. Alcohol: occasionally Drugs: PCP use Family History: mother diabetes Allergies No Known Allergies Allergy (Verified 09/26/18 19:45) HOME MEDICATIONS: Home Medications Medication Instructions Recorded NK [No Known Home Medication] 02/15/18 REVIEW OF SYSTEMS CONSTITUTIONAL: Absent: fever, chills, diaphoresis, generalized weakness, malaise, loss of appetite, weight change HEENT: Absent: rhinorrhea, nasal congestion, throat pain, throat swelling, difficulty swallowing, mouth swelling, ear pain, eye pain, visual changes CARDIOVASCULAR: Absent: chest pain, syncope, palpitations, irregular heart rate, lightheadedness , peripheral edema RESPIRATORY: Absent: cough, shortness of breath, dyspnea with exertion, orthopnea, wheezing, stridor, hemoptysis GASTROINTESTINAL: Absent: abdominal pain, abdominal distension, nausea, vomiting, diarrhea, constipation, melena, hematochezia GENITOURINARY: Absent: dysuria, frequency, urgency, hesitancy, hematuria, flank pain, genital pain MUSCULOSKELETAL: Absent: myalgia, arthralgia, joint swelling, back pain, neck pain SKIN: Absent: rash, itching, pallor HEMATOLOGIC/IMMUNOLOGIC: Absent: easy bleeding, easy bruising, lymphadenopathy, frequent infections ENDOCRINE: Absent: unexplained weight gain, unexplained weight loss, heat intolerance, cold intolerance NEUROLOGIC: Absent: headache, focal weakness or paresthesias, dizziness, unsteady gait, seizure, mental status changes, bladder or bowel incontinence PSYCHIATRIC: Absent: anxiety, depression, suicidal or homicidal ideation, hallucinations. PHYSICAL EXAMINATION Vital Signs - 24 hr 09/26/18 19:45 Temperature 99.3 F Pulse Rate 113 H Respiratory 18 Rate Blood Pressure 139/91 O2 Sat by Pulse 97 Oximetry (%) GENERAL: a/o x 3, comfortable in NAD HEAD: Normal with no signs of trauma. EYES: Pupils equal, round and reactive to light, extraocular movements intact, sclera anicteric, conjunctiva clear EARS, NOSE, THROAT: oropharynx clear without exudates. Moist mucous membranes. NECK: supple without lymphadenopathy, JVD, or masses. LUNGS: Breath sounds equal, clear to auscultation bilaterally. No wheezes, and no crackles. HEART: RRR, no murmurs appreciated, s1,s2 ABDOMEN: Soft, nontender, not distended, normoactive bowel sounds, no guarding, no rebound, no masses. MUSCULOSKELETAL: Normal range of motion at all joints. UPPER EXTREMITIES: no track hidalgo. Swelling and erythema on 2/3 of R hand dorsal aspect. Purulent discharge around sutures. 2+ pulses throughout. LOWER EXTREMITIES: 2+ pulses, warm, well-perfused. No calf tenderness. No peripheral edema. NEUROLOGICAL: Cranial nerves II-XII intact. Normal speech. Normal gait. Laboratory Results - last 24 hr 09/26/18 09/26/18 21:05 21:05 WBC 15.0 H RBC 4.75 Hgb 14.7 Hct 43.7 MCV 92.0 MCH 30.8 MCHC 33.5 RDW 14.1 Plt Count 245 MPV 8.5 Absolute Neuts (auto) 11.0 H Neutrophils % 73.5 Lymphocytes % 17.6 D Monocytes % 6.4 Eosinophils % 1.9 Basophils % 0.6 Nucleated RBC % 0 Sodium 141 Potassium 4.0 Chloride 106 Carbon Dioxide 26 Anion Gap 9 BUN 11 Creatinine 0.9 Est GFR (CKD-EPI)AfAm 133.30 Est GFR (CKD-EPI)NonAf 115.01 Random Glucose 95 Calcium 9.1 Total Bilirubin 0.3 AST 26 ALT 57 Alkaline Phosphatase 104 Total Protein 7.7 Albumin 3.9 ASSESSMENT/PLAN: 28 yo M with a PMHx of polysubstance abuse (PCP, marijuana), presented to the ED with R hand cellulitis. #Sepsis 2/2 R Hand Cellulitis -tachy 113, WBC 15 -IV fluids NS -IV abx: Ancef -pain control with tylenol -follow blood cultures, wound cultures -CT of the R hand to rule out abscess #Hx of Drug abuse -currently not intoxicated -counseled on the importance of quitting -Utox pending #FEN -iv fluids NS -monitor -regular diet #DVT -eab dispo: obs Visit type - Emergency Visit Emergency Visit: Yes ED Registration Date: 09/26/18 Care time: The patient presented to the Emergency Department on the above date and was hospitalized for further evaluation of their emergent condition. - New Patient This patient is new to me today: Yes Date on this admission: 09/30/18 - Critical Care Critical Care patient: No
--- NOTE | 2018-09-27 00:48 | PN ---
Teaching Attending Note Name of Resident: Mag Gupta ATTENDING PHYSICIAN STATEMENT I saw and evaluated the patient. I reviewed the resident's note and discussed the case with the resident. I agree with the resident's findings and plan as documented. SUBJECTIVE: Patient is a 28 year old man with a PMH of polysubstance abuse (PCP, marijuana) and unspecified psychiatric illness who presents to the ER with Right hand pain. He said yesterday he was shadow boxing at his house and hit a metal pole causing a laceration between the 4th and 5th digits of his R hand. He then went to a hospital in [facility] and they stitched it. Today he woke up with increasing pain, redness, and swelling. He says the pain was a 10/10, throbbing pain. Patient has no other symptoms. He denies fevers, chills, nausea, vomiting , sob, chest pain, dizziness, diarrhea, recent traveling, sick contacts. He admits to PCP use today. He denies IV drug use. Denies suicidal or homicidal ideation. OBJECTIVE: Alert Vital Signs Period Temp Pulse Resp BP Sys/Arita Pulse Ox Last 24 Hr 98.6 F-99.3 F 113 18 139/91 97 HEENT: No Jaundice, eye redness or discharge, PERRLA, EOMI. Normocephalic, atraumatic. External ears are normal and hearing is grossly intact. No nasal discharge. Neck: Supple, nontender. No palpable adenopathy or thyromegaly. No JVD Chest: Good effort. Clear to auscultation and percussion. Heart: Regular. No S3, rub or murmur Abdomen: Not distended, soft, nontender and no HSM. No rebound or guarding. Normal bowel sounds. Ext: Peripheral pulses intact. No leg edema. Swelling and erythema on dorsum of the right hand along the ulnar aspect. Erythema extends to the 2nd digit on the right hand. Tenderness and warmth over the area of erythema, with purulent drainage from suture line between the fourth and fifth digits. Decreased range of motion with flexion of the fingers secondary to pain. Skin: Warm and dry. No petechiae, rash or ecchymosis. Neuro: Alert. Oriented x3. CN 2-12 grossly intact. Sensation grossly intact in all four extremities and DTR are symmetric. Psych: Appropriate mood and affect. Good insight. Current Medications Generic Name Dose Route Start Last Admin Trade Name Ramsey PRN Reason Stop Dose Admin Sodium Chloride 1,000 mls @ 83 mls/hr 09/26/18 23:45 09/27/18 00:30 Normal Saline - IV 83 mls/hr ASDIR DIXIE Administration Cefazolin Sodium 1 gm/ 50 mls @ 100 mls/hr 09/27/18 02:00 Dextrose IVPB Q8H-IV DIXIE Home Medications Medication Instructions Recorded NK [No Known Home Medication] 02/15/18 Abnormal Lab Results 09/26/18 21:05 WBC 15.0 H Absolute Neuts (auto) 11.0 H ASSESSMENT AND PLAN: 1. Infected right hand wound with cellulitis - Will get CT scan to rule out abscess and tendon damage. Continue IV Ancef and IV NS and consult ID. 2. Polysubstance abuse - Monitor closely for signs of drug withdrawal. Counseled patient about abstaining from illicit drug use. Will consult floor specialist and refer to drug detox upon discharge. 3. DVT prophylaxis - Lovenox 40 mg SQ q 24 hours. 4. Advance directives - Full code
[2018-09-27] MEDS ORDERED: CEFAZOLIN 1 GM in DEXTROSE 5%-WATER - 50 ML IVPB SCH (02:00)
== END 2018-09-27 15:00 | disposition left against medical advice (07) ==
LOC: JER 19:39 → INTOOBSV 23:48 → JERBED 23:48
PROVIDERS: ADMIT Internal Medicine; ATTEND Internal Medicine
PROC: 3E03329 Introduction of Other Anti-infective into Peripheral Vein, Percutaneous Approach (ICD-10-PCS; principal; 2018-09-26)
PROC: 3E0337Z Introduction of Electrolytic and Water Balance Substance into Peripheral Vein, Percutaneous Approach (ICD-10-PCS; 2018-09-26)
DX: A41.9 Sepsis, unspecified organism (principal); L03.113 Cellulitis of right upper limb; F17.210 Nicotine dependence, cigarettes, uncomplicated; F19.11 Other psychoactive substance abuse, in remission
CPT/HCPCS: 36415; 80053; 85025; 87040; 87070; 87205; 96365; 99283-25; G0378; J7030

== ENCOUNTER 2018-10-03 20:18 | Emergency (ER) | payer OTHER ==
--- NOTE | 2018-10-03 20:25 | PDOC ---
Rapid Medical Evaluation Time Seen by Provider: 10/03/18 20:20 Medical Evaluation: Allergies Allergy/AdvReac Type Severity Reaction Status Date / Time No Known Allergies Allergy Verified 09/26/18 19:45 10/03/18 20:20 HPI: L shoulder pain after injection 3 weeks ago shot, now numbness in fingers PE: Normal skin color and temperature L UE ORDERS: Nothing. 10/03/18 20:23 Discharge Disposition - Diagnosis Shoulder pain, right - Referrals - Patient Instructions - Post Discharge Activity
[2018-10-03 20:33] VITALS: BP 140/88; PULSE 110; TEMP 98.4; BMI 28.2
--- NOTE | 2018-10-03 21:06 | PDOC ---
History of Present Illness - General Chief Complaint: Pain Stated Complaint: SHOULDER PAIN Time Seen by Provider: 10/03/18 20:20 History Source: Patient Exam Limitations: No Limitations - History of Present Illness Initial Comments: Patient is a 28-year-old male who states over the past 3 days he has had pain located in the left deltoid. Patient denies injury or trauma. Patient denies previous injury surgeries to his left shoulder. Pain is a 4 out of 10, worse with movement. He states he attempted Tylenol without success. Patient denies any relieving factors. 10/03/18 21:04 Past History - Travel Traveled outside of the country in the last 30 days: No Close contact w/someone who was outside of country & ill: No - Past Medical History Allergies/Adverse Reactions: Allergies Allergy/AdvReac Type Severity Reaction Status Date / Time No Known Allergies Allergy Verified 10/03/18 20:51 Home Medications: Ambulatory Orders Clindamycin [Cleocin -] 300 mg PO ONCE 10/03/18 Anemia: No Asthma: No Cardiac Disorders: No CVA: No COPD: No DVT: No Diabetes: No GI Disorders: No Disorders: No HTN: No Hypercholesterolemia: No Kidney Stones: No Seizures: No Thyroid Disease: No - Surgical History Abdominal Surgery: No Appendectomy: No Cardiac Surgery: No Cholecystectomy: No Lung Surgery: No Neurologic Surgery: No Orthopedic Surgery: No - Reproductive History Testicular Surgery: No - Immunization History Immunization Up to Date: No - Suicide/Smoking/Psychosocial Hx Smoking History: Never smoked Have you smoked in the past 12 months: No Number of Cigarettes Smoked Daily: 6 Information on smoking cessation initiated: No 'Breaking Loose' booklet given: 02/15/18 Hx Alcohol Use: No Drug/Substance Use Hx: No Substance Use Type: None Hx Substance Use Treatment: Yes ([facility] inpatient detox and [facility] recently) Review of Systems - Review of Systems Able to Perform ROS?: Yes Constitutional: No: Chills, Fever Respiratory: No: Cough Cardiac (ROS): No: Chest Pain Musculoskeletal: No: Back Pain *Physical Exam - Vital Signs Last Vital Signs Temp Pulse Resp BP Pulse Ox 98.4 F 110 H 18 140/88 100 10/03/18 20:26 10/03/18 20:26 10/03/18 20:26 10/03/18 20:26 10/03/18 20:26 - Physical Exam Comments: Constitutional: VS stated, pt appears in no apparent distress; sitting in chair. Skin: Warm and dry. Intact, no lesions or excoriations. Head: Normocephalic; atraumatic Eyes: conjunctiva pink without injection or discharge. Throat: Oropharynx with pink and moist mucosa. Lungs: Bilateral breath sounds clear upon auscultation. No adventitious breath sounds. Heart: Regular rate and rhythm, Musculoskeletal: Focused on the left shoulder. No deformity. Patient has pain with abduction. Radial pulse present, cap refill less than 2 seconds, sensation intact. Neurologic: Awake, alert. Conversation fluent. 10/03/18 21:05 ED Treatment Course - RADIOLOGY Radiology Studies Ordered: Category Date Time Status SHOULDER-LEFT [RAD] Stat Radiology 10/03/18 20:52 Ordered Medical Decision Making - Medical Decision Making 10/03/18 21:06 left shoulder xray was reviewed by myself as negative. Pt was given Ibuprofen 600 mg in the ED. 10/03/18 21:08 *DC/Admit/Observation/Transfer Diagnosis at time of Disposition: Shoulder pain, right Qualifiers: Chronicity: acute Qualified Code(s): M25.511 - Pain in right shoulder - Discharge Dispostion Disposition: HOME Condition at time of disposition: Good - Referrals Referrals: Yanique Duarte MD [Primary Care Provider] - - Patient Instructions Printed Discharge Instructions: DI for Shoulder Sprain Additional Instructions: Ibuprofen 600 mg every 6 hours. F/U with your PCP - Post Discharge Activity Forms/Work/School Notes: Back to Work
[2018-10-03] MEDS ORDERED: IBUPROFEN 600 MG TABLET (FP) PO ONE ×2 (21:08→21:09)
== END 2018-10-03 21:12 | disposition home or self-care (01) ==
LOC: JERFT 20:18
DX: M25.511 Pain in right shoulder (principal)
CPT/HCPCS: 73030-TC-LT-FY; 99281-25

== ENCOUNTER 2018-10-05 19:38 | Emergency (ER) | payer OTHER ==
[2018-10-05 19:50] VITALS: BP 149/96; PULSE 104; TEMP 98.5; BMI 27.4
--- NOTE | 2018-10-05 19:52 | PDOC ---
Rapid Medical Evaluation Chief Complaint: Pain Time Seen by Provider: 10/05/18 19:47 Medical Evaluation: Allergies Allergy/AdvReac Type Severity Reaction Status Date / Time No Known Allergies Allergy Verified 10/03/18 20:51 10/05/18 19:48 I have performed a brief in-person evaluation of this patient. The patient presents with a chief complaint of: left arm pain x 1 week. States received psychiatric injection. ?? Thorazine - given at [facility] Pertinent physical exam findings: no redness/ has some firmness to site I have ordered the following: nothing The patient will proceed to the ED for further evaluation. Discharge Disposition - Diagnosis Pain - Referrals - Patient Instructions - Post Discharge Activity
[2018-10-05] MEDS ORDERED: KETOROLAC TROMETHAMINE 60 MG/2 ML VIAL IM ONE (20:10)
[2018-10-05] MEDS ORDERED: LIDOCAINE 5% TOPICAL PATCH TP ONE (20:10)
[2018-10-05] MEDS ORDERED: LIDOCAINE 5% TOPICAL PATCH ONE (20:21)
[2018-10-05] MEDS ORDERED: KETOROLAC TROMETHAMINE 60 MG/2 ML VIAL ONE (20:21)
--- NOTE | 2018-10-05 20:43 | PDOC ---
History of Present Illness - General Chief Complaint: Pain Stated Complaint: SHOULDER PAIN Time Seen by Provider: 10/05/18 19:47 History Source: Patient Exam Limitations: No Limitations Past History - Past Medical History Allergies/Adverse Reactions: Allergies Allergy/AdvReac Type Severity Reaction Status Date / Time No Known Allergies Allergy Verified 10/05/18 19:50 Home Medications: Ambulatory Orders Clindamycin [Cleocin -] 300 mg PO ONCE 10/03/18 Lidocaine 5% Patch [Lidoderm -] 1 patch TP DAILY #30 patch 10/05/18 Anemia: No Asthma: No Cardiac Disorders: No CVA: No COPD: No DVT: No Diabetes: No GI Disorders: No Disorders: No HTN: No Hypercholesterolemia: No Kidney Stones: No Seizures: No Thyroid Disease: No - Surgical History Abdominal Surgery: No Appendectomy: No Cardiac Surgery: No Cholecystectomy: No Lung Surgery: No Neurologic Surgery: No Orthopedic Surgery: No - Reproductive History Testicular Surgery: No - Immunization History Immunization Up to Date: No - Suicide/Smoking/Psychosocial Hx Smoking History: Never smoked Have you smoked in the past 12 months: No Number of Cigarettes Smoked Daily: 6 'Breaking Loose' booklet given: 02/15/18 Hx Alcohol Use: No Drug/Substance Use Hx: No Substance Use Type: None Hx Substance Use Treatment: Yes ([facility] inpatient detox and [facility] recently) *Physical Exam - Vital Signs Last Vital Signs Temp Pulse Resp BP Pulse Ox 98.5 F 104 H 18 149/96 97 10/05/18 19:47 10/05/18 19:47 10/05/18 19:47 10/05/18 19:47 10/05/18 19:47 - Physical Exam General Appearance: No: Apparent Distress Respiratory/Chest: positive: Lungs Clear, Normal Breath Sounds. negative: Respiratory Distress Cardiovascular: positive: Regular Rhythm, Regular Rate, S1, S2. negative: Murmur Extremity: positive: Normal Range of Motion, Other (mild TTP along L deltoid; no ecchymosis, no swelling, no induration to site, no bony tenderness) Integumentary: positive: Normal Color. negative: Swelling, Ecchymosis, Bruising Neurologic: positive: juvenile probation officer II-XII NML intact, Fully Oriented, Alert, Normal Mood/ Affect, Motor Strength 5/5 ED Treatment Course - Medications Given in the ED: ED Medications Discontinued Medications Generic Name Dose Route Start Last Admin Trade Name Ramsey PRN Reason Stop Dose Admin Ketorolac Tromethamine 60 mg 10/05/18 20:10 10/05/18 20:27 Toradol Injection - IM 10/05/18 20:11 60 mg ONCE ONE Administration Lidocaine 1 patch 10/05/18 20:10 10/05/18 20:27 Lidoderm Patch - TP 10/05/18 20:11 1 patch ONCE ONE Administration Medical Decision Making - Medical Decision Making 28 y/o M with hx of substance abuse (PCP), schizophrenia presents with L deltoid pain x 1 week. States received Thorazine injection 1 month ago. Was here 2 days ago for similar complaint and received Motrin; also had L shoulder xray done which was normal. States pain is not improved despite use of Motrin. Denies fever, URI sxs, sob, cp, abd pain, n/v, numbness/tingling. Likely muscular pain No focal deficits Given Toradol shot and lidocaine patch On reassessment, patient states feeling much better stable for dc 10/05/18 20:42 *DC/Admit/Observation/Transfer Diagnosis at time of Disposition: Pain in deltoid Qualifiers: Laterality: left Qualified Code(s): M79.18 - Myalgia, other site - Discharge Dispostion Disposition: HOME Condition at time of disposition: Improved Decision to Admit order: No - Prescriptions Prescriptions: Lidocaine 5% Patch [Lidoderm -] 1 patch TP DAILY #30 patch - Referrals Referrals: Lalit Cui MD [Staff Physician] - 2 Days - Patient Instructions Additional Instructions: Thank you for choosing [facility]. It was a pleasure taking care of you. Likely this is muscular pain You may take Motrin 600 mg every 6 hours by mouth as needed for mild to moderate pain. Take Motrin with food. Use warm compresses and lidocaine patch as well if needed You were given referred to primary care clinic for follow-up. Return to the Emergency Department if your symptoms worsen or persist or have other concerning symptoms. - Post Discharge Activity
== END 2018-10-05 20:50 | disposition home or self-care (01) ==
LOC: JERFT 19:38
PROC: 3E0233Z Introduction of Anti-inflammatory into Muscle, Percutaneous Approach (ICD-10-PCS; principal; 2018-10-05)
DX: M79.18 Myalgia, other site (principal); F20.9 Schizophrenia, unspecified; F19.10 Other psychoactive substance abuse, uncomplicated
CPT/HCPCS: 96372; 99281-25

== ENCOUNTER 2018-11-20 09:13 | Inpatient (IN) | payer OTHER ==
--- NOTE | 2018-11-20 11:36 | HP ---
CIWA Score Nausea/Vomitin-No Nausea/No Vomiting Muscle Tremors: None Anxiety: 0-No Anxiety, at Ease Agitation: 0-Normal Activity Paroxysmal Sweats: No Perspiration Orientation: 0-Oriented Tacttile Disturbances: 0-None Auditory Disturbances: 0-None Visual Disturbances: 0-None Headache: 0-None Present CIWA-Ar Total Score: 0 - Admission Criteria OASAS Guidelines: Admission for Medically Managed Detox: Requires at least one of the followin. CIWA greater than 12 2. Seizures within the past 24 hours 3. Delirium tremens within the past 24 hours 4. Hallucinations within the past 24 hours 5. Acute intervention needed for co occurring medical disorder 6. Acute intervention needed for co occurring psychiatric disorder 7. Severe withdrawal that cannot be handled at a lower level of care (continued vomiting, continued diarrhea, abnormal vital signs) requiring intravenous medication and/or fluids 8. Admission ROS [facility] Allergies/Adverse Reactions: Allergies Allergy/AdvReac Type Severity Reaction Status Date / Time No Known Allergies Allergy Verified 11/20/18 09:58 History of Present Illness: pt here requesting detox rom etoh use , reports 1 x 6-pk /day , latest use today , current KELLIE as above , deneis symptoms if not drinking , denies tremors, blackouts or seizures , denies driving while intoxicated, denies falls . cannabis : 1 blunt/day tobacco : 1 ppd pcp : 2 blunts/day pmhx : denies pshx : denies Exam Limitations: No Limitations - Ebola screening Have you traveled outside of the country in the last 21 days: No Have you had contact with anyone from an Ebola affected area: No - Review of Systems Constitutional: No Symptoms Reported EENT: reports: No Symptoms Reported Respiratory: reports: No Symptoms reported Cardiac: reports: No Symptoms Reported GI: reports: No Symptoms Reported : reports: No Symptoms Reported Musculoskeletal: reports: No Symptoms Reported Integumentary: reports: Lumps (posterior trunk x 10 years) Neuro: reports: No Symptoms reported Endocrine: reports: No Symptoms Reported Psychiatric: reports: Orientated x3 Patient History - Patient Medical History Hx Anemia: No Hx Asthma: No Hx Chronic Obstructive Pulmonary Disease (COPD): No Hx Cardiac Disorders: No Hx Hypertension: No Hx Hypercholesterolemia: No HX Cerebrovascular Accident: No Hx Seizures: No Hx Diabetes: No Hx Gastrointestinal Disorders: No Hx Genitourinary Disorders: No Hx Sexually Transmitted Disorders: Yes (STD IN 2017 AND GOT A ONE TIME SHOT.) Hx Renal Disease (ESRD): No Hx Thyroid Disease: No Hx Human Immunodeficiency Virus (HIV): No (NEGATIVE HX) Hx Hepatitis C: No (NEGATIVE HX) Hx Depression: No Hx Suicide Attempt: No (DENIES S/H/I/TODAY) Hx Bipolar Disorder: No Hx Schizophrenia: No - Patient Surgical History Past Surgical History: No Hx Neurologic Surgery: No Hx Cataract Extraction: No Hx Cardiac Surgery: No Hx Lung Surgery: No Hx Breast Surgery: No Hx Breast Biopsy: No Hx Abdominal Surgery: No Hx Appendectomy: No Hx Cholecystectomy: No Hx Genitourinary Surgery: No Hx Section: No Hx Orthopedic Surgery: No Anesthesia Reaction: No - PPD History Date: 08/20/17 - Smoking Cessation Smoking history: Never smoked Have you smoked in the past 12 months: No Aproximately how many cigarettes per day: 6 Hx Chewing Tobacco Use: No - Substances abused Alcohol Substance route: Oral Frequency: Daily Amount used: 6-160z beers/day Age of first use: 14 Date of last use: 11/20/18 PCP Substance route: Smoking Frequency: Daily Amount used: 3-4 blunts/$10 per blunt Age of first use: 26 Date of last use: 11/16/18 Marijuana/Hashish Substance route: Smoking Frequency: Daily Amount used: 1 blunt/$10 per blunt Age of first use: 14 Date of last use: 11/18/18 Family Disease History - Family Disease History Family Disease History: Diabetes: Mother (ALIVE) Admission Physical Exam [facility] - Physical General Appearance: Yes: No Apparent Distress HEENTM: Yes: EOMI, Hearing grossly Normal, Normocephalic, Normal Voice Respiratory: Yes: Chest Non-Tender, Lungs Clear, Normal Breath Sounds, No Respiratory Distress, No Accessory Muscle Use Neck: Yes: No masses,lesions,Nodules, Trachea in good position Cardiology: Yes: Regular Rhythm, Regular Rate, S1, S2 Abdominal: Yes: Non Tender, Soft Back: Yes: Normal Inspection Musculoskeletal: Yes: full range of Motion, Gait Steady Extremities: Yes: Non-Tender Neurological: Yes: Fully Oriented, Alert, Motor Strength 5/5 Integumentary: Yes: Warm - Addiitonal Findings: pt to go to rehab when KELLIE 0.000 - Diagnostic (1) Alcohol dependence Current Visit: Yes Status: Acute Qualifiers: Substance use status: with intoxication (2) Cannabis dependence Current Visit: Yes Status: Chronic (3) Nicotine dependence Current Visit: Yes Status: Chronic Qualifiers: Nicotine product type: cigarettes (4) Phencyclidine (PCP) use disorder, mild, abuse Current Visit: Yes Status: Suspected (5) Marihuana dependence Current Visit: Yes Status: Chronic Breathalyzer - Breathalyzer Breathalyzer: 0.010 Urine Drug Screen - Test Device Lot number: [id number] Expiration date: 07/19/20 - Control Is test valid?: Yes - Results Drug screen NEGATIVE: No Urine drug screen results: THC-Marijuana Inpatient Rehab Admission - Rehab Decision to Admit Inpatient rehab admission?: Yes - Initial Determination Are CD services needed?: Yes Free of communicable disease: Yes Not in need of hospitalization: Yes - Rehab Admission Criteria Previous failed treatment: Yes Poor recovery environment: Yes Comorbidities: No Lacks judgement: Yes Patient is meeting Inpatient Rehab admission criteria:: Yes
[2018-11-20] MEDS ORDERED: MAGNESIUM HYDROX 2400MG/30ML ORAL SUSPENSION 30 ML CUP PO PRN (12:05)
[2018-11-20] MEDS ORDERED: guaiFENesin 200 MG/10 ML 10 ML UNIT-DOSE CUPS PO PRN (12:05)
[2018-11-20] MEDS ORDERED: NICOTINE POLACRILEX 2 MG GUM BUC PRN (12:05)
[2018-11-20] MEDS ORDERED: MAGNESIUM CITRATE 300 ML BOTTLE PO PRN (12:05)
[2018-11-20] MEDS ORDERED: ACETAMINOPHEN 325 MG TABLET (FP) PO PRN (12:05)
[2018-11-20] MEDS ORDERED: MENTHOL/PHENOL 1 EACH UD MM PRN (12:05)
[2018-11-20] MEDS ORDERED: hydrOXYzine PAMOATE 25 MG CAPSULE (FP) PO PRN (12:05)
[2018-11-20] MEDS ORDERED: P-EPHED 60MG/TRIPROLIDI 2.5MG TABLET PO PRN (12:05)
[2018-11-20] MEDS ORDERED: IBUPROFEN 400 MG TABLET (FP) PO PRN (12:05)
[2018-11-20] MEDS ORDERED: MAG HYDROX/AL HYDROX/SIMETH 30 ML UNIT-DOSE CUP PO PRN (12:05)
[2018-11-20 15:09] LABS: HEMATOCRIT 46.9 % (35.4-49); HEMOGLOBIN 15.9 GM/dL (11.7-16.9); MCH 31.2 pg (25.7-33.7); MCHC 33.8 g/dl (32.0-35.9); MEAN CELL VOLUME 92.3 fl (80-96); MEAN PLT VOLUME 8.9 fl (7.5-11.1); PLATELET COUNT 226 K/MM3 (134-434); RBC 5.09 M/mm3 (4.00-5.60); RDW 14.4 % (11.9-15.9); WHITE BLOOD COUNT 5.8 K/mm3 (4.0-10.0)
[2018-11-20 16:04] LABS: ALBUMIN 4.2 g/dl (3.4-5.0); BILIRUBIN,TOTAL 0.6 mg/dL (0.2-1); BLOOD UREA NITROGEN 14.2 mg/dL (7-18); CALCIUM 9.2 mg/dL (8.5-10.1); CREATININE 0.8 mg/dL (0.55-1.3); POTASSIUM 4.3 mmol/L (3.5-5.1); TOT PROT 7.8 g/dl (6.4-8.2)
[2018-11-20] MEDS: THIAMINE HCL 100 MG TABLET (FP) PO SCH (22:04)
[2018-11-21 08:42] LABS: PH,URINE 5.5 (5.0-8.0); URINE APPEARANCE CLEAR; URINE BILIRUBIN NEGATIVE (NEGATIVE); URINE COLOR YELLOW; URINE GLUCOSE (UA) NEGATIVE (NEGATIVE); URINE KETONE NEGATIVE (NEGATIVE); URINE LEUK ESTERASE NEGATIVE (NEGATIVE); URINE NITRITE NEGATIVE (NEGATIVE); URINE PROTEIN NEGATIVE (NEGATIVE); URINE UROBILINOGEN 0.2 mg/dL (0.2-1.0)
[2018-11-21] MEDS: PRENATAL VITAMINS W/ FOLIC ACID TABLET (FP) PO SCH (10:28)
[2018-11-21] MEDS: MELATONIN 5 MG TABLETS PO PRN (21:33)
[2018-11-21] MEDS: THIAMINE HCL 100 MG TABLET (FP) PO SCH (21:33)
[2018-11-22] MEDS: PRENATAL VITAMINS W/ FOLIC ACID TABLET (FP) PO SCH (10:20)
[2018-11-22] MEDS: MELATONIN 5 MG TABLETS PO PRN (21:21)
[2018-11-22] MEDS: THIAMINE HCL 100 MG TABLET (FP) PO SCH (21:21)
[2018-11-23] MEDS: PRENATAL VITAMINS W/ FOLIC ACID TABLET (FP) PO SCH (10:11)
[2018-11-23] MEDS: MELATONIN 5 MG TABLETS PO PRN (21:29)
[2018-11-23] MEDS: THIAMINE HCL 100 MG TABLET (FP) PO SCH (21:29)
[2018-11-24 06:47] VITALS: BP 104/63; PULSE 59; TEMP 97.7
[2018-11-24] MEDS: PRENATAL VITAMINS W/ FOLIC ACID TABLET (FP) PO SCH (09:55)
--- NOTE | 2018-11-24 15:32 | PN ---
[facility] Progress Note Note: patient did not want to continue treatment due to personal issue,all attempts to convince patient to stay with no avail, the risk of relapsing is high patient understood,,seen by counselor,signed release AMA, left the unit in stable condition Vital Signs Temperature 97.7 F 11/24/18 06:46 Pulse Rate 59 L 11/24/18 06:46 Respiratory Rate 18 11/24/18 06:46 Blood Pressure 104/63 11/24/18 06:46 O2 Sat by Pulse Oximetry (%)
--- NOTE | 2018-11-24 16:50 | PN ---
[facility] Progress Note Note: this note is the discharge note from rehab diagnosis alcohol dependence cannabis dependence pcp dependence nicotine dependence patient signed release AMA left the unit in good and stable condition
== END 2018-11-24 16:36 | disposition left against medical advice (07) | DRG 770 ==
LOC: YASAS 09:13 → Y5N 12:28
PROVIDERS: ADMIT Neuromusculoskeletal Medicine & OMM; ATTEND Neuromusculoskeletal Medicine & OMM
PROC: HZ42ZZZ Group Counseling for Substance Abuse Treatment, Cognitive-Behavioral (ICD-10-PCS; principal; 2018-11-20)
DX: F10.20 Alcohol dependence, uncomplicated (principal); F12.20 Cannabis dependence, uncomplicated; F16.20 Hallucinogen dependence, uncomplicated; F17.210 Nicotine dependence, cigarettes, uncomplicated; Z86.19 Personal history of other infectious and parasitic diseases
CPT/HCPCS: 36415; 80053; 81003; 85027; 86593; 87389

== ENCOUNTER 2023-01-16 17:41 | Emergency (ER) | payer OTHER ==
[2023-01-16 17:53] VITALS: BP 122/71; PULSE 64; RESP 18; TEMP 98.2; BMI 29.9
[2023-01-16] MEDS ORDERED: KETOROLAC TROMETHAMINE 30 MG/1 ML VIAL IM ONE (18:41)
[2023-01-16] MEDS ORDERED: FLUCONAZOLE 150 MG TABLET PO ONE ×2 (18:41→18:42)
[2023-01-16] MEDS ORDERED: KETOROLAC TROMETHAMINE 30 MG/1 ML VIAL ONE (18:42)
[2023-01-16 19:07] LABS: PH,URINE 5.5 (5.0-8.0); URINE APPEARANCE CLEAR; URINE BILIRUBIN NEGATIVE (NEGATIVE); URINE COLOR YELLOW; URINE GLUCOSE (UA) 3+ (NEGATIVE); URINE KETONE 3+ (NEGATIVE); URINE LEUK ESTERASE NEGATIVE (NEGATIVE); URINE NITRITE NEGATIVE (NEGATIVE); URINE PROTEIN NEGATIVE (NEGATIVE); URINE UROBILINOGEN 0.2 mg/dL (0.2-1.0)
== END 2023-01-16 18:54 | disposition home or self-care (01) ==
LOC: JERFT 17:41
PROC: 3E0233Z Introduction of Anti-inflammatory into Muscle, Percutaneous Approach (ICD-10-PCS; principal; 2023-01-16)
DX: N48.89 Other specified disorders of penis (principal); B37.9 Candidiasis, unspecified
CPT/HCPCS: 36415; 81003; 87070; 87077; 87086; 87205; 87491; 87591; 99284-25

== ENCOUNTER 2023-06-16 19:10 | Emergency (ER) | payer OTHER ==
[2023-06-16 19:15] VITALS: BP 131/90; PULSE 83; RESP 18; BMI 34.1
[2023-06-16 19:16] VITALS: TEMP 97.8
[2023-06-16 20:01] LABS: BASO % 0.5 % (0-2.0); HEMOGLOBIN 15.3 GM/dL (11.7-16.9); LYMPH % 19.9 % (8-40); MCH 30.8 pg (25.7-33.7); MCHC 34.8 g/dl (32.0-35.9); MEAN CELL VOLUME 88.6 fl (80-96); MEAN PLT VOLUME 8.6 fl (7.5-11.1); MONO % 7.6 % (3.8-10.2); PLATELET COUNT 261 10^3/uL (134-434); RBC 4.97 M/mm3 (4.00-5.60); RDW 14.2 % (11.9-15.9); WHITE BLOOD COUNT 10.6 K/mm3 (4.0-10.0)
[2023-06-16] MEDS ORDERED: ACETAMINOPHEN 325 MG TABLET (FP) PO ONE (20:05)
[2023-06-16 20:14] LABS: POTASSIUM 3.7 mmol/L (3.5-5.1)
[2023-06-16 20:17] LABS: ALBUMIN 3.8 g/dl (3.4-5.0); BLOOD UREA NITROGEN 15.4 mg/dL (7-18)
[2023-06-16 20:20] LABS: CREATININE 1.1 mg/dL (0.55-1.3)
[2023-06-16 20:21] LABS: BILIRUBIN,TOTAL 0.6 mg/dL (0.2-1); TOT PROT 7.7 g/dl (6.4-8.2)
[2023-06-16] MEDS ORDERED: KETOROLAC TROMETHAMINE 15 MG/ML VIAL IVPUSH ONE (20:27)
[2023-06-16] MEDS ORDERED: KETOROLAC TROMETHAMINE 15 MG/ML VIAL ONE (20:35)
== END 2023-06-16 20:43 | disposition home or self-care (01) ==
LOC: JER 19:10
PROC: 3E0333Z Introduction of Anti-inflammatory into Peripheral Vein, Percutaneous Approach (ICD-10-PCS; principal; 2023-06-16)
DX: K62.5 Hemorrhage of anus and rectum (principal); M54.50 Low back pain, unspecified
CPT/HCPCS: 36415; 80053; 82272; 85025; 86850; 86900; 86901; 99284-25

== ENCOUNTER 2023-07-14 15:50 | Emergency (ER) | payer OTHER ==
[2023-07-14 15:54] VITALS: BP 143/87; PULSE 99; RESP 18; TEMP 98; BMI 34.1
[2023-07-14] MEDS ORDERED: KETOROLAC TROMETHAMINE 30 MG/1 ML VIAL ONE (16:35)
[2023-07-14] MEDS: KETOROLAC TROMETHAMINE 30 MG/1 ML VIAL IM ONE (16:55)
== END 2023-07-14 18:40 | disposition home or self-care (01) ==
LOC: JER 15:50
PROC: 3E0233Z Introduction of Anti-inflammatory into Muscle, Percutaneous Approach (ICD-10-PCS; principal; 2023-07-14)
DX: M25.561 Pain in right knee (principal); M25.571 Pain in right ankle and joints of right foot; W11.XXXA Fall on and from ladder, initial encounter
CPT/HCPCS: 73562-TC-RT-FY; 73590-TC-RT-FY; 73610-TC-RT-FY; 73630-TC-RT-FY; 99284-25